=== PATIENT | male | born 1950 | race Caucasian/White ===

== ENCOUNTER → 2017-03-13 07:49 | Outpatient (CLI) | payer MEDICARE, BC | END | disposition home or self-care (01) | LOC: D.RAD 07:49 | DX: K21.9 Gastro-esophageal reflux disease without esophagitis (principal) ==

== ENCOUNTER 2017-03-20 08:30 | Outpatient (CLI) | payer MEDICARE, BC | END 2017-03-20 09:45 | LOC: D.OPS 08:30 | DX: R13.10 Dysphagia, unspecified (principal); K21.9 Gastro-esophageal reflux disease without esophagitis ==

== ENCOUNTER 2017-06-14 08:17 | Day surgery (SDC) | payer MEDICARE, BC ==
[2017-04-11 20:29] VITALS: Ht 182.9 cm; Wt 100.7 kg
[~2017-06-14] VITALS: Ht 182.9 cm; Wt 100.7 kg
--- NOTE | ~2017-06-14 | OP ---
PATIENT NAME: NEPTALI MORALES MEDICAL RECORD: [id number] :46 LOCATION:D.OPS ADMISSION DATE: SURGEON: BRIANNA MARTINEZ MD DATE OF OPERATION: 06/14/2017 PREOPERATIVE DIAGNOSES: 1. 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 2. History of Pitts's esophagus. 3. History of recent LINX procedure by Dr. Montenegro. POSTOPERATIVE DIAGNOSES: 1. 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 2. History of Pitts's esophagus. 3. History of recent LINX procedure by Dr. Montenegro. 4. No evidence of recurrent or persistent hiatal hernia. 5. No evidence of recurrence or persistence of the duodenal adenoma. PROCEDURES: 1. Esophagogastroduodenoscopy with antral and distal esophageal biopsies. 2. Control of hemorrhage within the distal esophagus utilizing the argon plasma contract technician. SURGEON: Brianna Martinez MD PROFILE MILL OPERATOR TAPE CONTROL: None. BLOOD LOSS: Minimal. ANESTHESIA: General. COMPLICATIONS: None. The risks, possible complications, and alternatives to the procedure were explained to the patient. He elects to proceed. OPERATIVE COURSE: The patient was conveyed to the operating room electively on 06/14/2017. General anesthesia was induced by the anesthesia staff. A bite block was inserted. A gastroscope was inserted into the mouth. It was advanced easily to the hypopharynx. The esophagus was easily intubated as were stomach and duodenum. Upon withdrawal, retroflexed and angulus views were obtained. Antral biopsies were obtained. Distal esophageal biopsies were obtained. I again went back and scrutinized the duodenum. I was able to advance all the way to the fourth portion of the duodenum. I utilized normal imaging as well as narrow band imaging. I saw no evidence of a recurrent or persistent polyp within the duodenum. I then withdrew into the distal esophagus. At the site of the distal esophageal biopsies and the area of Pitts's esophagus, there was some bleeding and this bleeding was controlled utilizing the argon plasma contract technician with the esophageal setting in the forced mode. The endoscope was then withdrawn under direct vision. The patient was then extubated and conveyed to postanesthesia care unit, where he was in stable condition. I will see him in the office in 2-3 weeks. It is very likely, at that time, I will return his endoscopic needs back over to OPERATIVE REPORT [id number] NEPTALI MORALES. TRANSINT:[id number] Voice Confirmation ID: [id number] DOCUMENT ID: [id number] BRIANNA MARTINEZ MD at 1742 CC: ERLINDA FORD MD, MARLENA WALDEN and HUANG MONTENEGRO MD [id number] DICTATION DATE: 06/14/17 1350 MEAT BUTCHER: 06/14/17 1456 [facility] [place] 06/14/[address] [address]
[~2017-06-14 08:17] MED LIST: ASPIRIN EC81 M1 PO; CENTRUM SILVER1 TA1 PO; DIPHEDRYL25 MG PO; HYDROCODON-ACE1 EAC7 PO; KRILL OIL 1,001 EAC1 PO; LIPITOR80 MG PO; NEXIUM20 MG PO; NORVASC5 MG PO; OMEPRAZOLE40 MG PO; POTASSIUM99 M1 PO; PROBIOTIC1 EAC1 PO; VITAMIN B-121000 MCG PO; XALATAN 0.0052.5 ML RIGHT EYE
[2017-06-14 09:33] LABS: HEMATOCRIT 46.3 % (42.0-54.0); HEMOGLOBIN 15.3 g/dL (13.5-17.5); MCH 28.1 pg (26.0-34.0); MEAN PLATELET VOLUME 9.6 fL (7.4-10.4); RBC 5.45 10x6/uL (4.20-6.10); RDW 15.1 % (11.5-14.5); WBC 6.4 10x3/uL (4.8-10.8)
== END 2017-06-14 15:27 | disposition home or self-care (01) ==
LOC: D.OPS 08:17 → D.PAN 10:45 → D.OPS 10:45 → D.PAN 12:00 → D.OPS 15:27
PROVIDERS: Anesthesiology
DX: K22.70 Barrett's esophagus without dysplasia (principal); Z01.812 Encounter for preprocedural laboratory examination

== ENCOUNTER → 2018-05-29 12:18 | Outpatient (CLI) | payer MEDICARE, BC ==
--- NOTE | 2018-05-31 15:13 | EC ---
PATIENT:NEPTALI MORALES DATE OF SERVICE: 05/29/18 SEX: M MEDICAL RECORD: [id number] DATE OF : 46 LOCATION:[facility] AGE OF PATIENT: 68 ADMISSION DATE: 05/29/18 REFERRING PHYSICIAN: INTERPRETING PHYSICIAN: JUANY MCDONOUGH MD ECHOCARDIOGRAM REPORT ECHO CHARGES 4 ECHO COMPLETE Date: 05/29/18 CLINICAL DIAGNOSIS: AORTIC STENOSIS ECHOCARDIOGRAPHIC MEASUREMENTS (adult normal given) AC root (d.<3.7cm) 3.6 cm LV Septum d (<1.2 cm> 1.2 cm Valve Excursion 1.8 cm LV Septum (systole) 1.8 cm Left Atria (s.<4.0cm> 4.6 cm LVPW d(<1.2cm) 1.4 cm RV (d.<2.3cm) 4.0 cm LVPW (sytole) 1.9 cm LV diastole(<5.6CM) 5.7 cm MV E-F(>70mm/sec) cm LV systole 3.0 cm LVOT Diameter 2.0 cm MV exc.(>10mm) 0.8 cm Est.ejection fraction (50-75%) % DOPPLER: LVIT cm/sec A 104 cm/sec E 74.0 cm/sec LA cm/sec RVSP 24 mmHg LVOT 1189 cm/sec AOP1/2T m/s Asc. Ao 397 cm/sec RVOT 122 cm/sec RA cm/sec PA 164 cm/sec AV Gradient Peak 63.0 mmHg AV Mean 36.59mmHg AV Area 1.0 cm MV Gradient Peak 9.28 mmHg MV Mean 3.68 mmHg MV Area cm COMMENTS: [employer] Principal: Emily LUGO [employer] Agent: 1 Dr. Mcdonough TAPE# PACS Pericardial Effusion N DATE OF SERVICE: 05/29/2018 ECHOCARDIOGRAM DATE OF SERVICE: 05/29/2018 FINDINGS: 1. Left ventricular chamber size is within normal limits. Left ventricular systolic function is normal. Overall ejection fraction estimated at 60%. 2. Right atrium and right ventricular chamber sizes are mildly dilated. Left ECHOCARDIOGRAM REPORT [id number] NEPTALI MORALES atrium measures 4.6 cm. 3. Valvular structures: Aortic valve demonstrates ycvnomqr-wi-ucgniz aortic stenosis, valve area calculates 1.0 cm-squared with gradient of 63-mm across the valve. The remaining valvular structures have normal structure and motion. 4. Doppler interrogation elsewise reveals mild aortic insufficiency, mild tricuspid regurgitation, no other valvular insufficiency or stenosis. Pulmonary systolic pressure is estimated at 24 mmHg. 5. No evidence of pericardial effusion or left ventricular thrombus. TRANSINT:[id number] Voice Confirmation ID: [id number] DOCUMENT ID: [id number] JUANY MCDONOUGH MD at 1513 CC: [id number] DICTATION DATE: 05/29/18 1546 SOLAR PHOTOVOLTAIC INSTALLER: 05/29/18 1607 DEP CLI 05/29/18 [facility] [address] [place] [address]
== END | disposition home or self-care (01) ==
LOC: D.HCCARDIO 12:18
DX: I35.0 Nonrheumatic aortic (valve) stenosis (principal)

== ENCOUNTER → 2018-11-21 14:11 | Outpatient (CLI) | payer MEDICARE, BC ==
[2017-04-11 20:29] VITALS: BMI 25.4
--- NOTE | 2018-11-28 13:30 | EC ---
PATIENT:NEPTALI MORALES DATE OF SERVICE: 11/21/18 SEX: M MEDICAL RECORD: [id number] DATE OF : 46 LOCATION:[facility] AGE OF PATIENT: 68 ADMISSION DATE: 11/21/18 REFERRING PHYSICIAN: INTERPRETING PHYSICIAN: JUANY MCDONOUGH MD ECHOCARDIOGRAM REPORT ECHO CHARGES 4 ECHO COMPLETE Date: 11/21/18 CLINICAL DIAGNOSIS: H/O HTN ECHOCARDIOGRAPHIC MEASUREMENTS (adult normal given) AC root (d.<3.7cm) 3.2 cm LV Septum d (<1.2 cm> 1.3 cm Valve Excursion 1.2 cm LV Septum (systole) 1.9 cm Left Atria (s.<4.0cm> 5.2 cm LVPW d(<1.2cm) 1.5 cm RV (d.<2.3cm) 2.1 cm LVPW (sytole) 2.1 cm LV diastole(<5.6CM) 5.6 cm MV E-F(>70mm/sec) cm LV systole 3.3 cm LVOT Diameter 1.8 cm MV exc.(>10mm) cm Est.ejection fraction (50-75%) % DOPPLER: LVIT cm/sec A 88.0 cm/sec E 66.0 cm/sec LA cm/sec RVSP 29.0 mmHg LVOT 149 cm/sec AOP1/2T m/s Asc. Ao 346 cm/sec RVOT 109 cm/sec RA cm/sec PA 129 cm/sec AV Gradient Peak 48.0 mmHg AV Mean 30.0 mmHg AV Area 1.1 cm MV Gradient Peak 3.7 mmHg MV Mean 1.4 mmHg MV Area cm COMMENTS: OP - HC Education Department Chair: 1 PRAKASH SHAVON Life Science Teacher: 1 Dr. Mcdonough TAPE# PACS Pericardial Effusion N DATE OF SERVICE: FINDINGS: 1. Left ventricular chamber size is upper limits of normal, left systolic function is preserved at 55%. 2. Left atrium is enlarged at 5.2 cm. Right atrium and right ventricular chamber sizes are within normal limits. 3. Valvular structures: Aortic valve demonstrates moderate calcific aortic stenosis, valve area calculates to 1.1 cm-squared with a gradient of 48 mm across the valve. The remaining valvular structures have normal structure and ECHOCARDIOGRAM REPORT [id number] ANDREW,NEPTALI LAWRENCE motion. 4. Doppler interrogation elsewise only reveals trace aortic insufficiency. No other valvular insufficiency or stenosis. Pulmonary systolic pressure is normal estimated at 29 mmHg. 5. No evidence of pericardial effusion or left ventricular thrombus. TRANSINT:[id number] Voice Confirmation ID: [id number] DOCUMENT ID: [id number] JUANY MCDONOUGH MD at 1330 CC: [id number] DICTATION DATE: 11/26/18 1155 MONEY ROOM SUPERVISOR: 11/26/18 1241 DEP CLI 11/21/18 [facility] [address] [place] [address]
== END | disposition home or self-care (01) ==
LOC: D.HCCECHO 14:11 → D.HCCARDIO 14:30
PROVIDERS: ATTEND Internal Medicine Interventional Cardiology
DX: I35.0 Nonrheumatic aortic (valve) stenosis (principal)

== ENCOUNTER 2019-04-21 12:22 | Emergency (ER) | payer MEDICARE, BC ==
[~2019-04-21] VITALS: Ht 182.9 cm; Wt 106.8 kg
[2019-04-21 12:36] VITALS: Ht 182.9 cm; Wt 106.8 kg
[2019-04-21] MEDS ORDERED: LISINOPRIL10 MG PO (12:39)
[2019-04-21 13:20] LABS: APTT 29.1 SECONDS (22.8-39.4); INR 1.01 (0.85-1.17); PROTIME 13.2 SECONDS (11.6-15.0)
[2019-04-21 13:28] LABS: CALC OSMOLALITY 267 mosm/kg (275-300); CALCIUM 9.5 mg/dL (8.5-10.1); CARBON DIOXIDE 25.4 mmol/L (21.0-32.0); CHLORIDE - SERUM 100 mmol/L (98-107); CREATININE - SERUM 1.2 mg/dL (0.6-1.3); GLUCOSE 133 mg/dL (74-106); POTASSIUM - SERUM 4.2 mmol/L (3.5-5.1); SODIUM 132 mmol/L (136-145); UREA NITROGEN 16 mg/dL (7-18); eGFR NON AFRICAN AMERICAN 64 mL/min (90-120)
[2019-04-21 13:42] LABS: ALBUMIN 3.8 g/dL (3.4-5.0); ALKALINE PHOSPHATASE 83 U/L (30-120); ALT (SGPT) 31 U/L (10-68); CKMB 0.8 U/L (0.0-3.6); CREATINE KINASE 82 UL (21-232); MAGNESIUM - SERUM 1.8 mg/dL (1.8-2.4); PROTEIN - SERUM 7.9 g/dL (6.4-8.2); TROPONIN-I 0.025 ng/mL (0.000-0.060)
[2019-04-21 13:50] LABS: BASOPHILS 0.5 % (0-2); EOSINOPHILS 0.3 % (0-7); HEMATOCRIT 48.4 % (42.0-54.0); IMMATURE GRANULOCYTES 0.3 % (0-5); LYMPHOCYTES 11.9 % (15-50); MCHC 33.1 g/dL (31.0-37.0); MCV 84.6 fL (80.0-100.0); MEAN PLATELET VOLUME 9.6 fL (7.4-10.4); MONOCYTES 11.4 % (2-11); NEUTROPHILS 75.6 % (40-80); PLATELET COUNT 193 10x3/uL (130-400); RBC 5.72 10x6/uL (4.20-6.10); RDW 13.6 % (11.5-14.5); WBC 10.3 10x3/uL (4.8-10.8)
[2019-04-21 13:50] LABS: UDS - AMPHET NEGATIVE QUAL (NEGATIVE); UDS - BARB NEGATIVE QUAL (NEGATIVE); UDS - BENZO NEGATIVE QUAL (NEGATIVE); UDS - COCAINE NEGATIVE QUAL (NEGATIVE); UDS - OPIATE NEGATIVE QUAL (NEGATIVE); UDS - PCP NEGATIVE QUAL (NEGATIVE); UDS - THC NEGATIVE QUAL (NEGATIVE)
[2019-04-21 14:03] LABS: BILIRUBIN NEGATIVE (NEGATIVE); GLUCOSE NEGATIVE (NEGATIVE); KETONE NEGATIVE (NEGATIVE); NITRITE NEGATIVE (NEGATIVE); UROBILINOGEN NORMAL (NORMAL)
[2019-04-21 22:30] VITALS: BP 148/65
== END 2019-04-21 22:30 | disposition other institution (70) ==
LOC: D.ER 12:22
PROVIDERS: Family Medicine
DX: I63.532 Cerebral infarction due to unspecified occlusion or stenosis of left posterior cerebral artery (principal); C79.89 Secondary malignant neoplasm of other specified sites; I10 Essential (primary) hypertension; R01.1 Cardiac murmur, unspecified

== ENCOUNTER 2020-08-09 05:30 | Inpatient (IN) | payer MEDICARE, BC ==
[2020-08-04 12:53] LABS: BASOPHILS 1.2 % (0-2); EOSINOPHILS 1.9 % (0-7); HEMATOCRIT 48.1 % (42.0-54.0); MCH 28.2 pg (26.0-34.0); MCHC 33.3 g/dL (31.0-37.0); MCV 84.7 fL (80.0-100.0); MEAN PLATELET VOLUME 7.3 fL (7.4-10.4); MONOCYTES 10.2 % (2-11); NEUTROPHILS 68.7 % (40-80); PLATELET COUNT 201 10x3/uL (130-400); RBC 5.67 10x6/uL (4.20-6.10); RDW 14.6 % (11.5-14.5); WBC 8.2 10x3/uL (4.8-10.8)
[2020-08-04 13:02] LABS: ANION GAP 15.2 mmol/L (8-16); CALCIUM 9.4 mg/dL (8.5-10.1); CARBON DIOXIDE 24.3 mmol/L (21.0-32.0); CREATININE - SERUM 1.1 mg/dL (0.6-1.3); POTASSIUM - SERUM 4.5 mmol/L (3.5-5.1)
[2020-08-04 13:16] LABS: BILIRUBIN NEGATIVE (NEGATIVE); KETONE NEGATIVE mg/dL (< 1+); NITRITE NEGATIVE (NEGATIVE); PH 6.5 (5.0-8.0); UROBILINOGEN NORMAL mg/dL (< 2)
[2020-08-04 13:19] LABS: APTT 31.5 SECONDS (22.8-39.4); INR 1.1 (0.85-1.17); PROTIME 13.2 SECONDS (11.6-15.0)
[~2020-08-09] VITALS: Ht 180.3 cm; Wt 106.6 kg
[2020-08-09] VITALS (14 sets, daily range): BP systolic 92–128; BP diastolic 48–74; BMI 32.8
--- NOTE | ~2020-08-09 | OP ---
PATIENT NAME: NEPTALI MORALES MEDICAL RECORD: [id number] :46 LOCATION:D.[id number] ADMISSION DATE:08/09/20 SURGEON: BRIA WILLIS MD DATE OF OPERATION: 08/09/2020 PREOPERATIVE DIAGNOSIS: Osteoarthritis, left hip. POSTOPERATIVE DIAGNOSIS: Osteoarthritis, left hip. PROCEDURE PERFORMED: Left total hip arthroplasty. INDICATIONS FOR THE PROCEDURE: Mr. Morales is a 70-year-old male with history of left hip pain and arthritis. He has been having this pain for some time now and it is getting progressively worse. He is having difficulty with some mobility and has elected to proceed with surgery for left total hip arthroplasty. Risks, benefits and alternatives of surgery were discussed with the patient and consent was obtained. DESCRIPTION OF THE PROCEDURE: The patient was met in the holding area where his identity and confirmation of procedure was performed. The left lower extremity was marked and he was taken to the operating room where he was placed supine on the operating table. Anesthesia was administered. He was then positioned on the [place] table. Extremities were positioned and padded appropriately. Left lower extremity was prepped and draped in a sterile fashion. The patient received preoperative antibiotics as well as TXA and a timeout was performed before initiating the case. On initiation of the case, an anterior Colin-C[place] approach was utilized for our exposure. We incised through the skin and subcutaneous tissues were dissected down to the tensor fascia. The fascia was then split longitudinally and the interval between tensor and sartorius/rectus was utilized for deep exposure. We dissected down to identify the lateral circumflex vessels. These were tied and cauterized. We continued our dissection to the anterior hip capsule. Retractors were placed around the superior and inferior femoral neck as well as over the anterior brim of the acetabulum. The anterior capsule was then excised. Capsule was very thickened. There were some loose bodies within the capsule as well. Retractors were then repositioned around the femoral neck and our femoral neck cut was completed. The femoral head was removed with the corkscrew device. Retractors were repositioned around the acetabulum. The acetabulum was debrided. The head was sized to a size 52. We began reaming with a size 43 reamer, reaming up sequentially to a size [address] a 56 mm cup. The cup was placed and malleted into position. Alignment and positioning were confirmed under x-ray. The center hole cap was placed and the liner was tapped into position. We then turned our attention to the proximal femur. The leg was externally rotated and a hook was placed under the proximal femur. The leg was taken into extension and adduction. Retractors were placed in the medial calcar and over the greater trochanter. The hip was elevated. This tissue was released from the shoulder until we had good exposure. We then began preparing the proximal femur using a cookie cutter followed by the canal finder. We then began broaching, going all the way up to a size 12, at which point he had good fit and stability. This was trialled with a neutral head and neck and had good fit and stability, but leg length did appear to be slightly short. We therefore elected to proceed with a +3 for our final implant. Hip was dislocated and repositioned. Our trial components were removed. The hip was irrigated thoroughly with saline. Our final components were then placed. The stem was placed and tapped into position. Our +3 head was placed and tapped on to the stem. The hip was again OPERATIVE REPORT [id number] NEPTALI MORALES reduced and images were obtained that showed good alignment of our hip components with near equal leg lengths. The hip was stable on shuck. Wound was irrigated thoroughly with saline. Joint solution was injected around the capsule of the proximal femur. The tensor fascia was then closed with a running Vicryl suture. The subcutaneous tissue was irrigated thoroughly with saline. Subcutaneous tissue was closed with Vicryl. The subcutaneous skin was closed with Monocryl and this was then covered with a Prineo Dermabond dressing. Sterile dressing was applied. The patient was turned back over to anesthesia where he was awakened and taken to recovery room in stable condition. POSTOPERATIVE PLAN: The patient is going to be admitted for routine postoperative care. He received 24 hours postoperative antibiotics to be started on DVT prophylaxis tomorrow. Physical therapy will be consulted to assist with mobilization, weightbearing as tolerated, left lower extremity. PLAN: Home with family. COMPLICATIONS: None. ESTIMATED BLOOD LOSS: 100 mL. ANESTHESIA: General with peripheral nerve block. TRANSINT:[id number] Voice Confirmation ID: [id number] DOCUMENT ID: [id number] BRIA WILLIS MD CC: [id number] DICTATION DATE: 08/09/20 1037 FLEET DIRECTOR: 08/09/20 1118 ADM IN [facility] [address] [facility], [facility]901
[~2020-08-09 05:30] MED LIST changes: +ALBUTEROL SULF8.5 GM INH; +ASCORBIC ACID500 MG PO; +GALZIN50 MG PO; +GLUCOSAMINE HC500 MG PO; +KLONOPIN0.5 MG PO; +LISINOPRIL10 MG PO; +PLAVIX75 MG PO; +PRED MILD 0.1210 ML LEFT EYE; +TRELEGY ELLIPT1 EACH INH; +VITAMIN B COMPLEX PO; +VITAMIN D PO; +VITAMIN E PO; +ZYRTEC10 MG PO
--- NOTE | 2020-08-09 09:27 | NUR ---
LEFT HIP/LEG CLEANSED WITH ALCOHOL PRIOR TO PREP FROM ABOVE HIP TO CALF CIRCUMFERENTIALLY PREPPED WITH CHLORAPREP X2 FROM ABOVE LEFT HIP TO CALF CIRCUMFERENTIALLY. RN IN STERILE ATTIRE TO PREP TRAFFIC KEPT TO MINIMUM
--- NOTE | 2020-08-09 15:51 | NUR ---
PT RESTING AT THIS TIME. DOUGIE IN ROOM. CL IN REACH. BED ALARM ON. TM
--- NOTE | 2020-08-09 19:38 | NUR ---
PATIENT WORKING WITH PT. AT BEDSIDE. PATIENT DENIES NEEDS AT THIS TIME. ENCOURAGED PATIENT TO CALL WITH NEEDS.
--- NOTE | 2020-08-09 21:49 | NUR ---
ADMINISTERED MEDS PER ORDERS. PATIENT BESS WELL. ENCOURAGED PATIENT TO CALL WITH NEEDS.
[2020-08-10] VITALS (7 sets, daily range): BP systolic 104–129; BP diastolic 42–74; Ht 180.3 cm; Wt 106.6 kg
[2020-08-10 07:08] LABS: BASOPHILS 0.2 % (0-2); EOSINOPHILS 0.1 % (0-7); HEMATOCRIT 39.5 % (42.0-54.0); LYMPHOCYTES 6.4 % (15-50); MCH 28.1 pg (26.0-34.0); MCHC 32.8 g/dL (31.0-37.0); MCV 85.7 fL (80.0-100.0); MEAN PLATELET VOLUME 7.9 fL (7.4-10.4); MONOCYTES 10.1 % (2-11); NEUTROPHILS 83.2 % (40-80); RBC 4.62 10x6/uL (4.20-6.10); RDW 14.4 % (11.5-14.5); WBC 12.5 10x3/uL (4.8-10.8)
[2020-08-10 07:14] LABS: ALBUMIN 2.8 g/dL (3.4-5.0); BILIRUBIN - TOTAL 0.45 mg/dL (0.2-1.3); CALCIUM 8.2 mg/dL (8.5-10.1); CARBON DIOXIDE 25.6 mmol/L (21.0-32.0); CREATININE - SERUM 1.1 mg/dL (0.6-1.3); POTASSIUM - SERUM 4.6 mmol/L (3.5-5.1); PROTEIN - SERUM 6.5 g/dL (6.4-8.2)
[2020-08-10 07:16] LABS: PLATELET COUNT 158 10x3/uL (130-400)
--- NOTE | 2020-08-10 18:45 | NUR ---
PT BLADDER SCANNED. VOLUME AT 745 ML. ORDER GIVEN BY BRONWYN DURAN APN TO EITHER IN AND OUT CATH OR PLACE DYER OVER 300 ML. PT OPTED TO HAVE AN IN AND OUT DOWN HOPING IT WILL STIMULATE HIS BLADDER. THIS WAS DONE USING STERILE TECHNIQUE. 850 ML REMOVED FROM BLADDER. CL IN REACH.
[2020-08-11] VITALS: BP 131/77
[2020-08-11 04:00] VITALS: BP 104/54
[2020-08-11 06:26] LABS: ALBUMIN 2.7 g/dL (3.4-5.0); ANION GAP 13.4 mmol/L (8-16); BASOPHILS 0.6 % (0-2); BILIRUBIN - TOTAL 0.56 mg/dL (0.2-1.3); CALCIUM 7.7 mg/dL (8.5-10.1); CARBON DIOXIDE 23.5 mmol/L (21.0-32.0); CREATININE - SERUM 1.1 mg/dL (0.6-1.3); EOSINOPHILS 2.2 % (0-7); HEMATOCRIT 36.9 % (42.0-54.0); HEMOGLOBIN 12.4 g/dL (13.5-17.5); LYMPHOCYTES 14.1 % (15-50); MCH 28.6 pg (26.0-34.0); MCHC 33.6 g/dL (31.0-37.0); NEUTROPHILS 68.1 % (40-80); PLATELET COUNT 151 10x3/uL (130-400); PROTEIN - SERUM 6.4 g/dL (6.4-8.2); RBC 4.34 10x6/uL (4.20-6.10); RDW 14.6 % (11.5-14.5)
[2020-08-11 06:29] LABS: POTASSIUM - SERUM 3.9 mmol/L (3.5-5.1)
[2020-08-11 06:40] LABS: WBC 8.9 10x3/uL (4.8-10.8)
[2020-08-11 07:57] VITALS: BP 121/59
--- NOTE | 2020-08-11 08:04 | NUR ---
AWAKE AND ALERT. ORIENTED X3. NO C/O AT THIS TIME. LUNGS ARE CLEAR BILATERALLY, NO COUGH NOTED. SKIN IS INTACT WITHOUT REDNESS EXCEPT INCISION TO LEFT HIP WHICH HAS A DRY INTACT DRESSSING IN PLACE. SL T LEFT WRIST IS PATENT WITHOUT REDNESS AT INSERTION SITE. AT BEDSIDE. VOIDED CLEAR YELLOW URINE IN URINAL. DENIES NEEDS.
--- NOTE | 2020-08-11 09:02 | NUR ---
ATE MOST OF BREAKFAST. TOOK AM MEDS WITHOUT DIFFICULTY. REQUESTED AND GIVNE ONE HYDROCODONE PO FOR PAIN MANAGEMENT PRIOR TO THERAPY. WILL MONITOR.
--- NOTE | 2020-08-11 10:30 | NUR ---
UP IN [facility] AT BEDSIDE PER PT.
[2020-08-11 12:06] VITALS: BP 15/64
--- NOTE | 2020-08-11 12:30 | NUR ---
LUNCH SERVED IN ROOM. AT BEDSIDE. DENIES NEEDS.
--- NOTE | 2020-08-11 13:03 | MORECARE ---
CASE MANAGEMENT DISCHARGE SUMMARY PATIENT: NEPTALI MORALES UNIT: [id number] ADM DATE: 08/10/20 AGE: 70 : 48 SEX: M ROOM/BED: D.2228 AUTHOR: NAYELI,DOC PHYSICIAN: REFERRING PHYSICIAN: BRIA WILLIS MD DATE OF SERVICE: 08/11/20 Case Management Discharge Planning Summary COMMENTS ENTERED DATE: 08/11/20 12:58 CT COMMENT TYPE: Discharge Planning REVIEWER: Sarah Mckinney CM met with patient at bedside after obtaining verbal consent. CM discussed availability / needs of home health, REHAB and medical equipment. Patient will need home health and medical equipment. [facility] home health has been set up and [facility] will deliver medical equipment of BSC, sock aid and toilet riser. Anticipate dc to home today. CM to follow and assist as needed. ENTERED DATE: 08/10/20 19:59 CT COMMENT TYPE: Discharge Planning REVIEWER: Shawn Marie Initial Clinical faxed for care IV referral DCP REVIEW SUMMARY ANTICIPATED D/C DATE: EXPECTED LOS : CASE STATUS: DCP Initiated INITIAL REVIEW: 08/09/2020 INITIAL REVIEWER: Sarah Mckinney FINAL DISCHARGE DISPOSITION: : FINAL REVIEWER: FINAL REVIEW DATE: DCP Focus Questions & Answers QUESTION: ANSWER : PATIENT: NEPTALI MORALES ENCOUNTER: [id number] MEDICAL RECORD#: [id number] ADMISSION DATE: 08/10/2020 DISCHARGE DATE: ATTENDING MD: : AGE: 70 MARITAL STATUS: M DC PLAN ID: [id number] FACILITY: [facility] PRINTED ON: 08/11/20 13:03 CT All edits/amendments must be made on the electronic document DICTATION DATE: 08/11/20 1303 SALESFORCE CONSULTANT: HERBER 08/11/20 1303 RPT#: [id number] DC DATE: STATUS: ADM IN [facility] [address] [place] [address] END OF REPORT
--- NOTE | 2020-08-11 14:48 | NUR ---
DISCHARGED TO HOME AMBULATORY WITH . DISCHARGE INSTRUCTIONS GIVEN BOTH VERBALLY AND WRITTEN. ALL QUESTIONS ANSWERED. PATIENT AND VERBALIZED UNDERSTANDING OF SAME. NEEDED PRESCRIPTIONS GIVEN TO PATIENT. ALL BELONGINGS WITH PATIENT. IV TO LEFT WRIST D/C WITH CATHETER INTACT.
--- NOTE | 2020-08-11 15:00 | MORECARE ---
CASE MANAGEMENT DISCHARGE SUMMARY PATIENT: NEPTALI MORALES UNIT: [id number] ADM DATE: 08/10/20 AGE: 70 : 48 SEX: M ROOM/BED: D.2228 AUTHOR: NAYELI,DOC PHYSICIAN: REFERRING PHYSICIAN: BRIA WILLIS MD DATE OF SERVICE: 08/11/20 Case Management Discharge Planning Summary COMMENTS ENTERED DATE: 08/11/20 12:58 CT COMMENT TYPE: Discharge Planning REVIEWER: Sarah Mckinney CM met with patient at bedside after obtaining verbal consent. CM discussed availability / needs of home health, REHAB and medical equipment. Patient will need home health and medical equipment. [facility] home health has been set up and [facility] will deliver medical equipment of BSC, sock aid and toilet riser. Anticipate dc to home today. CM to follow and assist as needed. ENTERED DATE: 08/10/20 19:59 CT COMMENT TYPE: Discharge Planning REVIEWER: Shawn Marie Initial Clinical faxed for care IV referral DCP REVIEW SUMMARY ANTICIPATED D/C DATE: EXPECTED LOS : CASE STATUS: DCP Initiated INITIAL REVIEW: 08/09/2020 INITIAL REVIEWER: Sarah Mckinney FINAL DISCHARGE DISPOSITION: : FINAL REVIEWER: FINAL REVIEW DATE: DCP Focus Questions & Answers QUESTION: ANSWER : PATIENT: NEPTALI MORALES ENCOUNTER: [id number] MEDICAL RECORD#: [id number] ADMISSION DATE: 08/10/2020 DISCHARGE DATE: 08/11/2020 ATTENDING MD: : [id number]-Apr-[birth year] AGE: 70 MARITAL STATUS: M DC PLAN ID: [id number] FACILITY: [facility] PRINTED ON: 08/11/20 14:59 CT All edits/amendments must be made on the electronic document DICTATION DATE: 08/11/201458 FIRE FIGHTERS DISPATCHER: HERBER 08/11/201458 RPT#: [id number] DC DATE:08/11/20 STATUS: DIS IN [place] [id number] [place] [address] END OF REPORT
--- NOTE | 2020-08-12 07:57 | MORECARE ---
CASE MANAGEMENT DISCHARGE SUMMARY PATIENT: NEPTALI MORALES UNIT: [id number] ADM DATE: 08/10/20 AGE: 70 : 48 SEX: M ROOM/BED: D.2228 AUTHOR: NAYELI,DOC PHYSICIAN: REFERRING PHYSICIAN: BRIA WILLIS MD DATE OF SERVICE: 08/12/20 Case Management Discharge Planning Summary COMMENTS ENTERED DATE: 08/11/20 12:58 CT COMMENT TYPE: Discharge Planning REVIEWER: Sarah Mckinney CM met with patient at bedside after obtaining verbal consent. CM discussed availability / needs of home health, REHAB and medical equipment. Patient will need home health and medical equipment. [facility] home health has been set up and [facility] will deliver medical equipment of BSC, sock aid and toilet riser. Anticipate dc to home today. CM to follow and assist as needed. ENTERED DATE: 08/10/20 19:59 CT COMMENT TYPE: Discharge Planning REVIEWER: Shawn Marie Initial Clinical faxed for care IV referral DCP REVIEW SUMMARY ANTICIPATED D/C DATE: EXPECTED LOS : CASE STATUS: DCP Initiated INITIAL REVIEW: 08/09/2020 INITIAL REVIEWER: Sarah Mckinney FINAL DISCHARGE DISPOSITION: : FINAL REVIEWER: FINAL REVIEW DATE: DCP Focus Questions & Answers QUESTION: ANSWER : PATIENT: NEPTALI MORALES ENCOUNTER: [id number] MEDICAL RECORD#: [id number] ADMISSION DATE: 08/10/2020 DISCHARGE DATE: 08/11/2020 ATTENDING MD: : [id number]-Apr-25 AGE: 70 MARITAL STATUS: M DC PLAN ID: [id number] FACILITY: [facility] PRINTED ON: 08/12/20 7:57 CT All edits/amendments must be made on the electronic document DICTATION DATE: 08/12/20756 SERVICE SHOP FOREMAN: HERBER 08/12/20756 RPT#: [id number] DC DATE:08/11/20 STATUS: DIS IN [place] [id number] [place] [address] END OF REPORT
--- NOTE | 2020-08-12 15:48 | MORECARE ---
CASE MANAGEMENT DISCHARGE SUMMARY PATIENT: NEPTALI MORALES UNIT: [id number] ADM DATE: 08/10/20 AGE: 70 : 48 SEX: M ROOM/BED: D.2228 AUTHOR: NAYELI,DOC PHYSICIAN: REFERRING PHYSICIAN: BRIA WILLIS MD DATE OF SERVICE: 08/12/20 Case Management Discharge Planning Summary COMMENTS ENTERED DATE: 08/11/20 12:58 CT COMMENT TYPE: Discharge Planning REVIEWER: Sarah Mckinney CM met with patient at bedside after obtaining verbal consent. CM discussed availability / needs of home health, REHAB and medical equipment. Patient will need home health and medical equipment. [facility] home health has been set up and [facility] will deliver medical equipment of BSC, sock aid and toilet riser. Anticipate dc to home today. CM to follow and assist as needed. ENTERED DATE: 08/10/20 19:59 CT COMMENT TYPE: Discharge Planning REVIEWER: Shawn Marie Initial Clinical faxed for care IV referral DCP REVIEW SUMMARY ANTICIPATED D/C DATE: EXPECTED LOS : CASE STATUS: DCP Initiated INITIAL REVIEW: 08/09/2020 INITIAL REVIEWER: Sarah Mckinney FINAL DISCHARGE DISPOSITION: : FINAL REVIEWER: FINAL REVIEW DATE: DCP Focus Questions & Answers QUESTION: ANSWER : PATIENT: NEPTALI MORALES ENCOUNTER: [id number] MEDICAL RECORD#: [id number] ADMISSION DATE: 08/10/2020 DISCHARGE DATE: 08/11/2020 ATTENDING MD: : [id number]-Apr-25 AGE: 70 MARITAL STATUS: M DC PLAN ID: [id number] FACILITY: [facility] PRINTED ON: 08/12/20 15:47 CT All edits/amendments must be made on the electronic document DICTATION DATE: 08/12/201546 PARKING ENFORCEMENT MANAGER: HERBER 08/12/201546 RPT#: [id number] DC DATE:08/11/20 STATUS: DIS IN [place] [id number] [place] [address] END OF REPORT
== END 2020-08-11 14:50 | disposition home health service (06) | DRG 470 ==
LOC: D.OPS 05:30 → D.MS 05:30 → D.OPS 07:30 → D.MS 08:55 → OBSVTIME 10:23 → D.OPS 10:23 → D.MS 10:23
PROVIDERS: Emergency Medicine; ADMIT Orthopaedic Surgery; ATTEND Orthopaedic Surgery
PROC: 0SRB0JZ Replacement of Left Hip Joint with Synthetic Substitute, Open Approach (ICD-10-PCS; principal; 2020-08-09 07:30)
DX: M16.12 Unilateral primary osteoarthritis, left hip (principal); I10 Essential (primary) hypertension; J44.9 Chronic obstructive pulmonary disease, unspecified; K21.00 Gastro-esophageal reflux disease with esophagitis, without bleeding; N40.0 Benign prostatic hyperplasia without lower urinary tract symptoms; Z87.891 Personal history of nicotine dependence; Z86.73 Personal history of transient ischemic attack (TIA), and cerebral infarction without residual deficits; R01.1 Cardiac murmur, unspecified